=== PATIENT | male | born 1955 | race Caucasian/White ===

== ENCOUNTER → 2016-08-11 | Outpatient (CLI) | payer BC ==
[2016-08-11 10:37] LABS: CHLORIDE,CL 103 mmol/L (98-110); SODIUM,NA 140 mmol/L (136-146)
--- NOTE | 2016-08-12 14:21 | CR ---
EXAM DATE: 08/11/16 PATIENT'S AGE: 61 Patient: CANDICE PENNINGTON Facility: [facility] . Site : 1955 Study: XRay-Shoulder Right [id number]/8/2017 11:12:22 AM Ordering Physician: Marjorie Santizo Final Report: Indication: Right shoulder pain. Technique: Right shoulder 3 views. Comparison: None Findings: Bones: Alignment is normal. No fractures or bone lesions. Small bone spur is emanating from the distal head of the clavicle superiorly Joint spaces: Moderate glenohumeral and AC joint osteoarthritis. Subacromial space is preserved. Soft tissues: Unremarkable. Impression: Moderate glenohumeral and AC joint osteoarthritis. Dictated by Benjamin Marvin MD @ Aug 12 2016 10:42AM Signed by: Benjamin Marvin MD @08/12/2016 10:43:58 AM (Electronic Signature) Report Signed by Proxy and Original Signed Document filed in the Medical Record. MTDD
== END ==
LOC: MW.CHIM 09:59
PROVIDERS: ATTEND Internal Medicine
DX: M25.511 Pain in right shoulder (principal); R23.8 Other skin changes; I10 Essential (primary) hypertension; M19.011 Primary osteoarthritis, right shoulder
CPT/HCPCS: 36415; 73030-26-RT; 73030-RT; 80053; 80061; 85025; 85610

== ENCOUNTER 2019-02-22 10:28 | Emergency (ER) | payer MEDICARE ==
[2019-02-22] MEDS ORDERED: Bacitracin Oint 1 GM U/D Packet TOP ONE (10:46)
[2019-02-22] MEDS ORDERED: Diphtheria,Pertussis(Acell),Tetanus Vaccine 0.5 ML Syringe IM ONE (10:46)
--- NOTE | 2019-02-22 10:47 | EDM.PDOC ---
ED HPI GENERAL MEDICAL PROBLEM - General Chief Complaint: Laceration Stated Complaint: NEEDS STITCHES ON FINGER Time Seen by Provider: 02/22/19 10:29 Source of Information: Reports: Patient History Limitations: Reports: No Limitations - History of Present Illness INITIAL COMMENTS - FREE TEXT/NARRATIVE: HISTORY AND PHYSICAL: History of present illness: Patient is a 63-year-old male who presents to the emergency room today with complaints of right fourth digit injury. He states he was moving some type when his finger got caught in between 2 large heavy pipe. He does have a 2 cm laceration noted to the distal aspect of the right fourth digit. He brought himself to the emergency room as he is concerned he may need stitches. He is unsure of his last tetanus update. He denies any other extremity involvement. Has no current systemic complaints. Review of systems: As per history of present illness and below otherwise all systems reviewed and negative. Past medical history: As per history of present illness and as reviewed below otherwise noncontributory. Surgical history: As per history of present illness and as reviewed below otherwise noncontributory. Social history: See social history for further information Family history: As per history of present illness and as reviewed below otherwise noncontributory. Physical exam: General: Well-developed and well-nourished 63-year-old male. Alert and oriented. Nontoxic appearing and in no acute distress. HEENT: Atraumatic, normocephalic, pupils equal and reactive bilaterally, negative for conjunctival pallor or scleral icterus, mucous membranes moist, trachea midline. No drooling or trismus noted. No meningeal signs. No hot potato voice noted. Lungs: Clear to auscultation, breath sounds equal bilaterally, chest nontender. Heart: S1S2, regular rate and rhythm without overt murmur Abdomen: Soft, nondistended, nontender. Skin: 2 cm laceration noted from the base of the nailbed to the anterior aspect of the mid right fourth digit. Laceration does not affect the nail bed. Otherwise skin is intact, warm, dry. No lesions or rashes noted. Extremities: Capillary refill less than 3 seconds. Appears to have no tendon involvement of the affected digit. He moves all extremities per self without difficulty or deficits. Neurovascular unremarkable. Neuro: Awake, alert, oriented. Cranial nerves II through XII unremarkable. Cerebellum unremarkable. Motor and sensory unremarkable throughout. Exam nonfocal. Notes: X-ray shows no acute findings.Chlorhexidine and wound wash were used to cleanse the area. One percent lidocaine was used to anesthetize the laceration site. Usual and customary procedures were followed for suture placement. 4-0 nylon, # 5 interrupted sutures were placed. Bacitracin nonstick dressing was applied. Supportive care measures were reviewed and discussed. Voices understanding and is agreeable to plan of care. Denies any further questions or concerns at this time. Diagnostics: X-ray Therapeutics: 1% lidocaine, wound care, bacitracin dressing,Tdap Prescription: None Impression: Laceration Plan: 1. Keep the area clean and dry. Continue to monitor for signs of infection. Sutures to be removed in 7-10 days. 2. Tylenol and/or ibuprofen as needed for pain management. 3. Please follow-up with your primary care provider in the next 1-2 days. Return to the ED as needed and as discussed. Definitive disposition and diagnosis as appropriate pending reevaluation and review of above. - Related Data Allergies Allergy/AdvReac Type Severity Reaction Status Date / Time No Known Allergies Allergy Verified 10/04/16 09:01 Home Meds: Home Meds amLODIPine Besylate [Amlodipine Besylate] 1 tab PO BRK 03/12/14 [History] hydroCHLOROthiazide [Hydrochlorothiazide] 12.5 mg PO BRK 03/12/14 [History] Past Medical History Cardiovascular History: Reports: Hypertension Respiratory History: Reports: COPD Musculoskeletal History: Reports: Arthritis ED ROS GENERAL - Review of Systems Review Of Systems: ROS reveals no pertinent complaints other than HPI. ED EXAM, SKIN/RASH Exam: See Below (See dictation) ED SKIN PROCEDURES - Laceration/Wound Repair Right 4th digit Appearance: Linear, Mildly Contaminated Distal NVT: Neuro & Vascular Intact, No Tendon Injury Anesthetic Type: Local Local Anesthesia - Lidocaine (Xylocaine): 1% Plain Local Anesthetic Volume: 2cc Skin Prep: Chlorhexidine (Hibiciens), Saline Saline Irrigation (cc's): 25 Exploration/Debridement/Repair: Wound Explored, In a Bloodless Field, Explored to Base, No Foreign Material Found Closed with: Sutures Lac/Wound length In cm: 2 Suture Size: 4-0 # of Sutures: 5 Suture Type: Nylon, Interrupted, Simple Drain Placement: No Sterile Dressing Applied: Provider Tetanus Status Addressed: Yes Complications: No Course - Orders/Labs/Meds Orders: Active Orders 24 hr Category Date Time Status Vaccines to be Administered [RC] PER UNIT ROUTINE Care 02/22/19 10:47 Active Fingers Fourth Digit Rt F8 [CR] Stat Exams 02/22/19 10:56 Ordered Meds: Medications Discontinued Medications Generic Name Dose Route Start Last Admin Trade Name Freq PRN Reason Stop Dose Admin Bacitracin 1 dose 02/22/19 10:46 Bacitracin Oint 1 Gm TOP 02/22/19 10:47 ONETIME ONE Diphtheria/Tetanus/Acell Pertussis 0.5 ml 02/22/19 10:46 Adacel IM 02/22/19 10:47 .ONCE ONE Lidocaine HCl 5 ml 02/22/19 10:46 Xylocaine-Mpf 1% INJECT 02/22/19 10:47 ONETIME ONE Departure - Departure Time of Disposition: 11:34 Disposition: Home, Self-Care 01 Clinical Impression: Laceration - Discharge Information Instructions: Laceration Care, Adult, [id number] Referrals: PCP,None [Primary Care Provider] - Forms: ED Department Discharge Additional Instructions: The following information is given to patients seen in the emergency department who are being discharged to home. This information is to outline your options for follow-up care. We provide all patients seen in our emergency department with a follow-up referral. The need for follow-up, as well as the timing and circumstances, are variable depending upon the specifics of your emergency department visit. If you don't have a primary care physician on staff, we will provide you with a referral. We always advise you to contact your personal physician following an emergency department visit to inform them of the circumstance of the visit and for follow-up with them and/or the need for any referrals to a consulting specialist. The emergency department will also refer you to a specialist when appropriate. This referral assures that you have the opportunity for follow-up care with a specialist. All of these measure are taken in an effort to provide you with optimal care, which includes your follow-up. Under all circumstances we always encourage you to contact your private physician who remains a resource for coordinating your care. When calling for follow-up care, please make the office aware that this follow-up is from your recent emergency room visit. If for any reason you are refused follow-up, please contact the [facility] at and asked to speak to the emergency department charge nurse. [facility] [address] [place] [address] [address] 1. Keep the area clean and dry. Continue to monitor for signs of infection. Sutures to be removed in 7-10 days. 2. Tylenol and/or ibuprofen as needed for pain management. 3. Please follow-up with your primary care provider in the next 1-2 days. Return to the ED as needed and as discussed. - My Orders Last 24 Hours: My Active Orders 02/22/19 10:47 Vaccines to be Administered [RC] PER UNIT ROUTINE 02/22/19 10:56 Fingers Fourth Digit Rt F8 [CR] Stat - Assessment/Plan Last 24 Hours: My Active Orders 02/22/19 10:47 Vaccines to be Administered [RC] PER UNIT ROUTINE 02/22/19 10:56 Fingers Fourth Digit Rt F8 [CR] Stat
--- NOTE | 2019-02-22 12:09 | CR ---
INDICATION: Crush between 2 pieces of pipe. Laceration distal posterior 4th digit. TECHNIQUE: Three views right 4th digit. FINDINGS: Moderate soft tissue swelling and soft tissue irregularity involving the mid and distal right 4th digit consistent with the known posttraumatic soft tissue injury and laceration. Multiple lacerations involving the mid to distal right 4th digit. No obvious acute fracture or dislocation in right 4th digit or in the visualized right hand and wrist. Mild to moderate degenerative arthritis right hand and wrist. Remainder negative. Dictated by Alek Stern MD @ Feb 22 2019 12:07PM Signed by Dr. Alek Stern @ Feb 22 2019 12:07PM
== END 2019-02-22 11:49 | disposition home or self-care (01) ==
LOC: MW.ED 10:28
DX: S61.214A Laceration without foreign body of right ring finger without damage to nail, initial encounter (principal); I10 Essential (primary) hypertension; M19.90 Unspecified osteoarthritis, unspecified site; Z23 Encounter for immunization; Z79.899 Other long term (current) drug therapy; W23.1XXA Caught, crushed, jammed, or pinched between stationary objects, initial encounter
CPT/HCPCS: 12001; 73140; 90471; 90715; 99283; J2001

== ENCOUNTER 2019-03-04 14:31 | Emergency (ER) | payer MEDICARE | END 2019-03-04 15:05 | disposition left against medical advice (07) | LOC: MW.ED 14:31 | DX: Z53.21 Procedure and treatment not carried out due to patient leaving prior to being seen by health care provider (principal) ==